=== PATIENT | male | born 1980 | race Caucasian/White ===

== ENCOUNTER 2018-04-25 16:16 | Emergency (ER) | payer MEDICAID ==
[~2018-04-25] VITALS: Ht 195.6 cm; Wt 102.1 kg
[2018-04-25 16:29] VITALS: Ht 195.6 cm; Wt 102.1 kg
== END 2018-04-25 19:13 | disposition left against medical advice (07) ==
LOC: ED 16:16
DX: Z53.21 Procedure and treatment not carried out due to patient leaving prior to being seen by health care provider (principal)

== ENCOUNTER 2019-05-26 20:46 | Emergency (ER) | payer MEDICAID ==
[~2019-05-26] VITALS: Ht 195.6 cm; Wt 103.4 kg
[2019-05-26 20:51] VITALS: BP 120/78; Ht 195.6 cm; Wt 103.4 kg
== END 2019-05-26 21:59 | disposition home or self-care (01) ==
LOC: ED 20:46
DX: R10.13 Epigastric pain (principal); J40 Bronchitis, not specified as acute or chronic; K21.9 Gastro-esophageal reflux disease without esophagitis